=== PATIENT | male | born 1950 | race Caucasian/White ===

== ENCOUNTER 2020-08-28 11:08 | Emergency (ER) | payer MEDICARE ==
[~2020-08-28 11:08] MED LIST: ASPIR 8181 MG PO; FOLIC ACID1 MG PO; HYDROXYZINE PO; JANUVIA50 MG PO; LIPITOR40 MG PO; METFORMIN HCL500 MG PO; NORVASC5 MG PO; PRILOSEC20 MG PO; ZYRTEC10 M3 PO
[2020-08-28] MEDS ORDERED: AUGMENTIN 875-1 EACH PO (14:12)
[2020-08-28] MEDS ORDERED: NORCO 5-325 TA1 EACH PO (14:12)
== END 2020-08-28 14:25 | disposition home or self-care (01) ==
LOC: FER 11:08
DX: S90.852A Superficial foreign body, left foot, initial encounter (principal); I10 Essential (primary) hypertension; E11.9 Type 2 diabetes mellitus without complications; Z79.84 Long term (current) use of oral hypoglycemic drugs; Z79.899 Other long term (current) drug therapy; Z79.82 Long term (current) use of aspirin; W45.8XXA Other foreign body or object entering through skin, initial encounter; Y92.009 Unspecified place in unspecified non-institutional (private) residence as the place of occurrence of the external cause
CPT/HCPCS: 73630